=== PATIENT | female | born 1960 | race Caucasian/White ===

== ENCOUNTER 2024-06-14 22:37 | Inpatient (IN) | payer OTHER ==
[~2024-06-14] VITALS: Ht 165.1 cm; Wt 55.8 kg
[2024-06-14 23:40] LABS: BASOPHILS % 0.3 % (0.0-1.0); EOSINOPHILS % 0.4 % (0.0-6.0); HEMATOCRIT 37.3 % (34.2-44.1); HEMOGLOBIN 12.9 g/dL (12.0-16.0); LYMPHOCYTES # (AUTO) 2.1 (1.0-3.2); LYMPHOCYTES % 29.8 % (18.0-39.1); MEAN CORPUSCULAR HEMOGLOBIN 30.7 pg (28-32); MEAN CORPUSCULAR HGB CONC 34.6 g/dL (31-35); MEAN CORPUSCULAR VOLUME 88.8 fL (81-99); MONOCYTES # (AUTO) 0.5 (0.2-0.8); MONOCYTES % 6.6 % (4.4-11.3); NEUTROPHILS # (AUTO) 4.4 (2.1-6.9); NEUTROPHILS % 62.6 % (38.7-80.0); PLATELET COUNT 216 x10e3/uL (140-360); RED CELL DISTRIBUTION WIDTH 11.9 % (11.7-14.4); WHITE BLOOD COUNT 7.09 x10e3/uL (4.8-10.8)
[2024-06-14] MEDS: MECLIZINE HCL 12.5 MG TAB PO ONE (23:42)
[2024-06-14 23:58] LABS: ALBUMIN 4.1 g/dL (3.5-5.0); ALBUMIN/GLOBULIN RATIO 1.5 (0.8-2.0); ANION GAP 14.3 mmol/L (8-16); CREATININE, SERUM 0.77 mg/dL (0.57-1.11); TOTAL PROTEIN 6.9 g/dL (6.5-8.1)
[2024-06-14 23:59] LABS: POTASSIUM 3.3 mmol/L (3.5-5.1)
[2024-06-15] VITALS (11 sets, daily range): BP systolic 93–122; BP diastolic 52–71; PULSE 57–78; RESP 16–18; TEMP 97.8–99.1; O2SAT 97–100
[2024-06-15] MEDS ORDERED: IOPAMIDOL 370 MG/ML 100 ML INFUS..BTL INJ ONE (00:14)
[2024-06-15] MEDS: SODIUM CHLORIDE 0.9% 1000ML 1,000 ML IV SCH ×2 (01:07→14:12)
[2024-06-15] MEDS ORDERED: ONDANSETRON HCL INJ 2MG/ML 2ML 2 MG/ML VIAL IV PRN (02:00)
[2024-06-15 12:02] LABS: ANION GAP 10.7 mmol/L (8-16); CALCIUM 8.5 mg/dL (8.4-10.2); CREATININE, SERUM 0.72 mg/dL (0.57-1.11); POTASSIUM 3.7 mmol/L (3.5-5.1)
[2024-06-15 17:23] LABS: CALCIUM 8.8 mg/dL (8.4-10.2); CREATININE, SERUM 0.82 mg/dL (0.57-1.11)
[2024-06-15] MEDS: ACETAMINOPHEN 325 MG TAB PO PRN (23:45)
[2024-06-16] VITALS (7 sets, daily range): BP systolic 101–111; BP diastolic 51–65; PULSE 63–80; RESP 16–18; TEMP 98.1–99.7; O2SAT 95–100
[2024-06-16 06:05] LABS: BASOPHILS % 0.7 % (0.0-1.0); EOSINOPHILS # (AUTO) 0.1 (0.0-0.4); HEMATOCRIT 39.8 % (34.2-44.1); HEMOGLOBIN 13.4 g/dL (12.0-16.0); LYMPHOCYTES # (AUTO) 2.7 (1.0-3.2); MEAN CORPUSCULAR HEMOGLOBIN 30.9 pg (28-32); MEAN CORPUSCULAR HGB CONC 33.7 g/dL (31-35); MEAN CORPUSCULAR VOLUME 91.7 fL (81-99); MONOCYTES # (AUTO) 0.4 (0.2-0.8); MONOCYTES % 7.2 % (4.4-11.3); NEUTROPHILS # (AUTO) 2.7 (2.1-6.9); NEUTROPHILS % 45.8 % (38.7-80.0); PLATELET COUNT 230 x10e3/uL (140-360); RED BLOOD COUNT 4.34 x10e6/uL (3.6-5.1); RED CELL DISTRIBUTION WIDTH 12.6 % (11.7-14.4); WHITE BLOOD COUNT 5.95 x10e3/uL (4.8-10.8)
[2024-06-16 06:26] LABS: ANION GAP 11.2 mmol/L (8-16); CALCIUM 8.7 mg/dL (8.4-10.2); CREATININE, SERUM 0.82 mg/dL (0.57-1.11); POTASSIUM 4.2 mmol/L (3.5-5.1)
[2024-06-16 09:57] LABS: MAGNESIUM 1.8 MG/DL (1.3-2.1); PHOSPHORUS 3.3 MG/DL (2.3-4.7)
== END 2024-06-16 13:15 | disposition home or self-care (01) | DRG 641 ==
LOC: ER 22:45 → ERHOLD 06-15 01:52 → MED/SURG2 06-15 03:00
PROVIDERS: ADMIT Internal Medicine; ATTEND Internal Medicine
DX: E86.0 Dehydration (principal); K76.0 Fatty (change of) liver, not elsewhere classified; E87.1 Hypo-osmolality and hyponatremia; M81.0 Age-related osteoporosis without current pathological fracture; G43.909 Migraine, unspecified, not intractable, without status migrainosus; Z11.52 Encounter for screening for COVID-19
CPT/HCPCS: 36415; 70450; 70496; 70498; 71045; 76770; 80048; 80053; 83735; 83935; 84100; 84300; 84484; 84550; 85025; 93005; 94799; 99284; J7030; Q9967; U0002